=== PATIENT | female | born 1990 | race Caucasian/White ===

== ENCOUNTER 2017-01-07 20:59 | Emergency (ER) | payer BC ==
[~2017-01-07] VITALS: Ht 160 cm; Wt 55.2 kg
[2017-01-07 21:14] VITALS: TEMP 37; Ht 160 cm; Wt 55.2 kg
[2017-01-07] MEDS ORDERED: BCPILLS PO (21:26)
[2017-01-07] MEDS ORDERED: FAMOTIDINE 20 MG TAB PO ONE (21:30)
[2017-01-07] MEDS ORDERED: PRED20TA PO (22:20)
[2017-01-07 22:28] VITALS: BP 97/65; PULSE 69; O2SAT 99
--- NOTE | 2017-01-07 22:44 | EMERGENCY ROOM VISIT NOTE ---
History Report prepared by Eddie: Wes Garzon Under the Supervision of: Dr. Paul Reed M.D. First contact with patient: 21:18 Chief Complaint: ALLERGIC REACTION Stated Complaint: ALLERGIC REACTION History of Present Illness The patient is a 26 year old female who presents to the Emergency Room with complaints of a constant allergic reaction that started at 1930 today. The patient states that she had Fenugreek leaves and lobster two days ago. She states that she started to experience vomiting the next day. She attributed this to the lobster. The patient states that her symptoms resolved until the she ate the leaves again today at 1930. She reports that following the meal, she began experiencing sneezing, rhinorrhea, coughing, and shortness of breath. The patient states that she feels as if her throat is closing up. She reports that she took two tablets of Benadryl 90 minutes ago, but denies any relief of pain. The patient admits to a history of eczema. She denies tongue swelling, itching, hypertension, diabetes, hyperlipidemia, abdominal pain, diarrhea, and fever. Source of History: patient Onset: 1929 Position: other (global) Timing: constant Modifying Factors (Relieving): other (Benadryl) Associated Symptoms: + SOB, No fevers, No abdominal pain, No diarrhea Review of Systems See HPI for pertinent positives & negatives. A total of 10 systems reviewed and were otherwise negative. Past Medical & Surgical Medical Problems: (1) Eczema Family History Patient reports no known family medical history. Social History Smoking Status: Never Smoker Housing Status: lives with significant other Occupation Status: employed Current/Historical Medications Scheduled Control Pills ( Control Pills), 1 TAB PO DAILY Prednisone (Prednisone), 3 TAB PO DAILY Allergies Coded Allergies: No Known Allergies (Unverified , 01/07/17) Physical Exam Vital Signs Date Time Temp Pulse Resp B/P (MAP) Pulse Ox O2 Delivery O2 Flow Rate FiO2 01/07/17 22:28 69 18 97/65 99 01/07/17 21:25 99 Room Air 01/07/17 21:14 37.0 68 20 113/70 98 Room Air Physical Exam Constitutional: Vital signs reviewed. Eyes: Pupils are equal round reactive to light. Conjunctiva are noninjected. ENT: Pharynx is clear without erythema or exudate. Mucous membranes are moist. Neck supple without meningeal signs. No tongue or uvula swelling. Respiratory: Clear to auscultation bilaterally. Breath sounds are equal bilaterally. No wheezing or stridor. Cardiovascular: Regular rate and rhythm. No rubs or gallops. GI: Soft, nondistended and nontender. Bowel sounds are present. Musculoskeletal: No peripheral edema. No lower extremity tenderness. Integumentary: No cyanosis. No hives. Neurological: The patient is awake and alert. No focal deficits. Psychiatric: Normal affect. Medical Decision & Procedures Medications Administered Medications (Trade) Dose Ordered Sig/Kaelyn Route Start Time Stop Time Status Last Admin Dose Admin Prednisone (PredniSONE TAB) 60 mg NOW STAT PO 01/07/17 21:25 01/07/17 21:27 DC 01/07/17 21:52 60 MG Famotidine (Pepcid Tab) 20 mg NOW ONCE PO 01/07/17 21:30 01/07/17 21:31 DC 01/07/17 21:53 20 MG ED Course 2118: The patient was evaluated in room B05. A complete history and physical exam was performed. 2124: Ordered Prednisone 60 mg PO. 2129: Ordered Pepcid Tab 20 mg PO. 2218: I reevaluated the patient and she is doing well. I discussed the treatment plan with the patient and she agrees. The patient is ready for discharge. Medical Decision This is a 26-year-old female who presents with what appears to be allergic reaction to herbs. I did perform a limited focused review of portions of the patient's old chart on the electronic medical record. The patient has had no recent pertinent visits to this hospital. I did evaluate the patient as noted above. The patient states that she believes she has an allergic reaction to Fenugreek leaves. She took some Benadryl prior to arrival and feels somewhat better. She states she has some slight difficulty breathing but is in no respiratory distress. She has no wheezing or stridor on examination. No angioedema. I did treat her with prednisone and Pepcid. We did observe her here and she stated that she felt better. She did feel well enough for discharge. She was discharged with a prescription for prednisone and will continue antihistamines. She was given return instructions as outlined below. Medication Reconcilliation Current Medication List: was personally reviewed by me Blood Pressure Screening Patient's blood pressure: Normal blood pressure Impression Primary Impression: Acute allergic reaction Scribe Attestation The scribe's documentation has been prepared under my direct and personally reviewed by me in its entirety. I confirm that the note above accurately reflects all work, treatment, procedures, and medical decision making performed by me. Departure Information Dispostion Home / Self-Care Prescriptions Prednisone (Prednisone) 20 Mg Tab 3 TAB PO DAILY, #12 TAB FOR 4 DAYS Prov: Paul Reed M.D. 01/07/17 Referrals No Doctor, Assigned (PCP) Forms HOME CARE DOCUMENTATION FORM, IMPORTANT VISIT INFORMATION Patient Instructions ED Allergic Reaction General Other, My [facility] Additional Instructions You have been examined and treated today on an emergency basis only. This is not a substitute for, or an effort to provide, complete comprehensive medical care. It is impossible to recognize and treat all injuries or illnesses in a single emergency department visit. It is therefore important that you follow up closely with your physician. Call as soon as possible for an appointment. Return for worsening symptoms or if you develop fever, vomiting, swelling to your tongue, lips or throat, or any other concerning symptoms. Problem Qualifiers Primary Impression: Acute allergic reaction Encounter type: initial encounter Qualified Codes: T78.40XA - Allergy, unspecified, initial encounter
--- NOTE | 2017-01-08 14:40 | Pharmacy Progress Note ---
ED Pharmacist Progress Note Date of Service: Jan 08, 2017. Received call from patient indicating that her heart was "racing" and wanted to know if prednisone could be causing that. Patient also reported taking more Benadryl today. Counseled that prednisone may cause that symptom, but Benadryl is unlikely to. However, patient denied feeling this way after the dose of prednisone received in the ED. I encouraged her to obtain her heart rate in beats per minute. Patient reported >90 beats per minute. Also reported that she felt "shaky". Denied any additional symptoms. Spoke with Dr. Reed who noted that additional evaluation/care, if needed, should be done in person and not over the phone. Counseled that patient should see her PCP or return to the ED for evaluation. Counseled that ED would be best for emergent care, especially if symptoms worsen. Patient acknowledged understanding.
--- NOTE | 2017-01-08 15:20 | EMERGENCY ROOM VISIT NOTE ---
ED Visit Note First contact with patient: 15:00 After speaking the pharmacist I called the patient back. She related that she had some palpitations today. Currently she is asymptomatic but I did advise her to come in for evaluation today or to see her physician today.
[2017-01-22] MEDS ORDERED: AMOX500C3 PO (00:34)
[2017-01-22] MEDS ORDERED: CLAR500T3 PO (00:34)
== END 2017-01-07 22:32 | disposition home or self-care (01) ==
LOC: C.EDB 21:01
DX: T78.40XA Allergy, unspecified, initial encounter (principal); X58.XXXA Exposure to other specified factors, initial encounter; L30.9 Dermatitis, unspecified; Z79.3 Long term (current) use of hormonal contraceptives

== ENCOUNTER 2017-01-10 01:49 | Emergency (ER) | payer BC ==
[~2017-01-10] VITALS: Ht 157.5 cm; Wt 52.9 kg
[~2017-01-10 01:49] MED LIST: BCPILLS PO; PRED20TA PO
[2017-01-10 01:51] VITALS: TEMP 37; Ht 157.5 cm; Wt 52.9 kg
[2017-01-10 02:53] LABS: PREG INTERNAL NEGATIVE QC NEG CLEAR BACKGROUND; PREG INTERNAL POSITIVE QC POS CONTROL LINE
[2017-01-10 03:44] LABS: ALB/GLOB RATIO 1.2 (0.9-2); CALCIUM 8.8 mg/dl (8.5-10.1); POTASSIUM 3.6 mmol/L (3.5-5.1); THYROID STIMULATING HORMONE 2.7 uIu/ml (0.300-4.500)
[2017-01-10 03:45] LABS: BUN/CREATININE RATIO 14.7 (10-20); CREATININE 0.71 mg/dl (0.60-1.20)
[2017-01-10 03:47] LABS: MANUAL MICROSCOPIC REQUIRED? NO; REVIEW REQ? NO; URINE APPEARANCE CLEAR (CLEAR); URINE BILIRUBIN NEG (NEG); URINE COLOR YELLOW; URINE EPITHELIAL CELL AUTO >30 /lpf (0-5); URINE NITRITE NEG (NEG); URINE PH 7.5 (4.5-7.5); URINE SPECIFIC GRAVITY 1.007 (1.000-1.030); UROBILINOGEN NEG (NEG); ZZUR CULT IF INDIC CLEAN CATCH NO
[2017-01-10 03:50] LABS: BASO % 0.4 %; BASO ABS # 0.02 K/uL (0-0.2); COMPLETE YES; EOS % 0.2 %; HEMATOCRIT 35.9 % (37-47); LYMPH ABS # 1.87 K/uL (1.2-3.4); MEAN CORPUSCULAR HEMOGLOBIN 28.9 pg (25-34); MEAN CORPUSCULAR HGB CONC 32.9 g/dl (32-36); MEAN PLATELET VOLUME 10.4 fL (7.4-10.4); MONO % 7.7 %; NEUT % 54.7 %; PLATELET COUNT 289 K/uL (130-400); RED BLOOD COUNT 4.08 M/uL (4.2-5.4); WHITE BLOOD COUNT 5.05 K/uL (4.8-10.8)
[2017-01-10 04:21] VITALS: BP 98/57; PULSE 64; O2SAT 98
--- NOTE | 2017-01-10 06:28 | EMERGENCY ROOM VISIT NOTE ---
History First contact with patient: 02:02 Chief Complaint: WEAKNESS Stated Complaint: MUSCLE WEAKNESS, NAUSEA, OVERHYDRATION Nursing Triage Summary: Pt complains of muscle weakness and increased urination. Pt feels she is overhydrated. Pt reports she was here Saturday with an allergic reaction and placed on prednisone. History of Present Illness The patient is a 26 year old female who presents to the Emergency Room with complaints of muscle weakness and increased urinary frequency for the past 2 days. The patient was seen in this department a few days ago with an allergic reaction. She was started on prednisone, and states that after taking this medication she began with her symptoms, however the allergic reaction symptoms have stopped. She has been drinking 10 cups of water daily for the past 2 days , and subsequently is urinating much more frequently than normal. She has not had fever or chills. No chest pain, chest tightness, shortness of breath, or abdominal pain. No flank pain. The patient did stop the prednisone today. She denies chance of as she is on control. She does not have history of thyroid disease. She rates her discomfort a 4/10. Review of Systems More than 10 systems were reviewed and otherwise negative with the exception of history of present illness. Past Medical/Surgical History Medical Problems: (1) Eczema Family History Patient reports no known family medical history. Social History Smoking Status: Never Smoker Housing Status: lives with significant other Occupation Status: employed Current/Historical Medications Scheduled Control Pills ( Control Pills), 1 TAB PO DAILY Prednisone (Prednisone), 3 TAB PO DAILY Allergies Coded Allergies: No Known Allergies (Unverified , 01/07/17) Physical Exam Vital Signs Date Time Temp Pulse Resp B/P (MAP) Pulse Ox O2 Delivery O2 Flow Rate FiO2 01/10/17 04:21 64 18 98/57 98 01/10/17 01:51 37.0 86 16 109/76 97 Room Air Physical Exam VITALS: Vitals are noted on the nurse's note and reviewed by myself. Vital signs stable. GENERAL: Well-developed, well-nourished, white female, who is in no acute distress and resting comfortably. Patient is cooperative with the examination. MOUTH: Mucous membranes moist. Tonsils are not enlarged. Pharynx without erythema, blood, or exudate. Uvula midline. Airway patent. NECK: Supple without nuchal rigidity. No lymphadenopathy. No thyromegaly. Cervical spine is nontender. HEART: Regular rate and rhythm without murmurs gallops or rubs. LUNGS: Clear to auscultation bilaterally without wheezes, rales or rhonchi. No retractions or accessory muscle use. ABDOMEN: Positive normal bowel sounds x 4. Soft, nontender, without masses or organomegaly. No guarding or rebound tenderness. Medical Decision & Procedures Laboratory Results 01/10/17 02:20 Red Blood Count 4.08, Mean Corpuscular Volume 88.0, Mean Corpuscular Hemoglobin 28.9, Mean Corpuscular Hemoglobin Concent 32.9, Mean Platelet Volume 10.4, Neutrophils (%) (Auto) 54.7, Lymphocytes (%) (Auto) 37.0, Monocytes (%) (Auto) 7.7, Eosinophils (%) (Auto) 0.2, Basophils (%) (Auto) 0.4, Neutrophils # (Auto) 2.76, Lymphocytes # (Auto) 1.87, Monocytes # (Auto) 0.39, Eosinophils # (Auto) 0.01, Basophils # (Auto) 0.02 01/10/17 02:20 Test 01/10/17 02:20 White Blood Count 5.05 K/uL (4.8-10.8) Red Blood Count 4.08 M/uL (4.2-5.4) Hemoglobin 11.8 g/dL (12.0-16.0) Hematocrit 35.9 % (37-47) Mean Corpuscular Volume 88.0 fL (80-100) Mean Corpuscular Hemoglobin 28.9 pg (25-34) Mean Corpuscular Hemoglobin Concent 32.9 g/dl (32-36) Platelet Count 289 K/uL (130-400) Mean Platelet Volume 10.4 fL (7.4-10.4) Neutrophils (%) (Auto) 54.7 % Lymphocytes (%) (Auto) 37.0 % Monocytes (%) (Auto) 7.7 % Eosinophils (%) (Auto) 0.2 % Basophils (%) (Auto) 0.4 % Neutrophils # (Auto) 2.76 K/uL (1.4-6.5) Lymphocytes # (Auto) 1.87 K/uL (1.2-3.4) Monocytes # (Auto) 0.39 K/uL (0.11-0.59) Eosinophils # (Auto) 0.01 K/uL (0-0.5) Basophils # (Auto) 0.02 K/uL (0-0.2) RDW Standard Deviation 39.7 fL (36.4-46.3) RDW Coefficient of Variation 12.4 % (11.5-14.5) Immature Granulocyte % (Auto) 0.0 % Immature Granulocyte # (Auto) 0.00 K/uL (0.00-0.02) Urine Color YELLOW Urine Appearance CLEAR (CLEAR) Urine pH 7.5 (4.5-7.5) Urine Specific [place] 1.007 (1.000-1.030) Urine Protein NEG (NEG) Urine Glucose (UA) NEG (NEG) Urine Ketones NEG (NEG) Urine Occult Blood NEG (NEG) Urine Nitrite NEG (NEG) Urine Bilirubin NEG (NEG) Urine Urobilinogen NEG (NEG) Urine Leukocyte Esterase SMALL (NEG) Urine WBC (Auto) 1-5 /hpf (0-5) Urine RBC (Auto) 0-4 /hpf (0-4) Urine Hyaline Casts (Auto) 0 /lpf (0-5) Urine Epithelial Cells (Auto) >30 /lpf (0-5) Urine Bacteria (Auto) NEG (NEG) Urine Test NEG (NEG) Anion Gap 7.0 mmol/L (3-11) Est Creatinine Clear Calc Drug Dose 95.8 ml/min Estimated GFR () 137.2 Estimated GFR (Non- 118.4 BUN/Creatinine Ratio 14.7 (10-20) Osmolality 290 mOsm/kg (280-300) Calcium Level 8.8 mg/dl (8.5-10.1) Total Bilirubin 0.7 mg/dl (0.2-1) Aspartate Amino Transf (AST/SGOT) 18 U/L (15-37) Alanine Aminotransferase (ALT/SGPT) 34 U/L (12-78) Alkaline Phosphatase 46 U/L (45-117) Total Creatine Kinase 37 U/L (26-192) Total Protein 7.2 gm/dl (6.4-8.2) Albumin 3.9 gm/dl (3.4-5.0) Globulin 3.3 gm/dl (2.5-4.0) Albumin/Globulin Ratio 1.2 (0.9-2) Thyroid Stimulating Hormone (TSH) 2.700 uIu/ml (0.300-4.500) ED Course Physical exam and history were performed. Nursing notes, EMR, and Medication List were personally reviewed. Patient appears to have reports of urinary frequency and vague weakness. On examination the patient appears well and certainly nontoxic. IV access was established and labs were obtained. The patient's blood work is as above and was reviewed. She does not have a significantly elevated white blood cell count, anemia, bandemia, or gross electrolyte imbalance. Her urine is without signs of infection. She does not appear to be diabetic. Her serum osmolality is normal. The patient vital signs were unchanged throughout her stay, she continued to remain comfortable. Overall the patient appears stable for discharge home. I suspect that her symptoms are somewhat related to taking prednisone, and not necessarily a significant underlying process. I will ask the patient to discontinue the prednisone and to follow with her primary care physician. She was agreeable to this plan and believe this is reasonable. She was otherwise invited back to the ER with any new, worsening, or concerning symptoms. The chart was completed utilizing [employer] Speech Voice Recognition Software. Grammatical errors, random word insertions, pronoun errors, and incomplete sentences are an occasional consequence of this system due to software limitations, ambient noise, and hardware issues. Any formal questions or concerns about the content, text, or information contained within the body of this dictation should be directly addressed to the provider for clarification. . Medical Decision Differential diagnosis: Etiologies such as metabolic, infection, hypo/hyperglycemia, electrolyte abnormalities, cardiac sources, intracerebral event, toxicologic, neurologic, as well as others were entertained. Impression Primary Impression: Muscle weakness Additional Impressions: Increased urinary frequency Medication reaction Departure Information Dispostion Home / Self-Care Condition GOOD Forms HOME CARE DOCUMENTATION FORM, IMPORTANT VISIT INFORMATION Patient Instructions My [facility] Additional Instructions You were seen and evaluated today on an emergency basis only. This is not a substitute for, or an effort to provide, complete comprehensive medical care. It is not possible to recognize and treat all injuries or illnesses in a single emergency department visit. For this reason it is recommended that you followup with your primary care physician next week for ongoing care and evaluation. Discontinue prednisone. You are welcome to return to the emergency department anytime with new, worsening, or concerning symptoms. Problem Qualifiers
== END 2017-01-10 04:30 | disposition home or self-care (01) ==
LOC: C.EDB 01:51 → C.EDA 04:30
DX: T88.7XXA Unspecified adverse effect of drug or medicament, initial encounter (principal); R53.1 Weakness; R11.0 Nausea; X58.XXXA Exposure to other specified factors, initial encounter; R35.0 Frequency of micturition; E87.70 Fluid overload, unspecified

== ENCOUNTER → 2017-01-19 | Outpatient (CLI) | payer BC | END | disposition home or self-care (01) | LOC: C.LAB 14:52 | PROVIDERS: ATTEND Nurse Practitioner Family | DX: R07.89 Other chest pain (principal) ==

== ENCOUNTER 2017-01-27 23:32 | Emergency (ER) | payer BC ==
[~2017-01-27] VITALS: Ht 158.8 cm; Wt 51.1 kg
[~2017-01-27 23:32] MED LIST changes: +AMOX500C3 PO; +CLAR500T3 PO
[2017-01-27 23:45] VITALS: TEMP 36.8; Ht 158.8 cm; Wt 51.1 kg
[2017-01-28] MEDS ORDERED: OMEP40CA41 PO (00:32)
[2017-01-28] MEDS ORDERED: BUSP5TAB59 PO (00:33)
[2017-01-28] MEDS ORDERED: SODIUM CHLORIDE 0.9% 1000ML 1,000 ML IV ONE (00:55)
[2017-01-28] MEDS ORDERED: SODIUM CHLORIDE 0.9% 1000ML 1,000 ML IV STA (00:55)
[2017-01-28 01:25] LABS: BASO % 0.4 %; BASO ABS # 0.02 K/uL (0-0.2); COMPLETE YES; EOS % 1.3 %; HEMATOCRIT 34.8 % (37-47); IG% 0.2 %; LYMPH % 29.3 %; LYMPH ABS # 1.37 K/uL (1.2-3.4); MEAN CELL VOLUME 85.3 fL (80-100); MEAN CORPUSCULAR HEMOGLOBIN 30.1 pg (25-34); MEAN CORPUSCULAR HGB CONC 35.3 g/dl (32-36); MEAN PLATELET VOLUME 10.6 fL (7.4-10.4); MONO % 6.4 %; NEUT % 62.4 %; PLATELET COUNT 279 K/uL (130-400); RED BLOOD COUNT 4.08 M/uL (4.2-5.4); WHITE BLOOD COUNT 4.67 K/uL (4.8-10.8)
[2017-01-28 01:46] LABS: POINT OF CARE TROPONIN I < 0.030 ng/ml (0-0.045)
[2017-01-28 01:49] LABS: BUN/CREATININE RATIO 13.1 (10-20); CALCIUM 8.8 mg/dl (8.5-10.1); CREATININE 0.69 mg/dl (0.60-1.20); POTASSIUM 3.4 mmol/L (3.5-5.1); PREG INTERNAL NEGATIVE QC NEG CLEAR BACKGROUND; PREG INTERNAL POSITIVE QC POS CONTROL LINE
[2017-01-28 01:58] VITALS: BP 112/68; PULSE 83; O2SAT 98
[2017-01-28 02:00] LABS: THYROID STIMULATING HORMONE 1.14 uIu/ml (0.300-4.500)
[2017-01-28] MEDS ORDERED: POTASSIUM CHLORIDE 10 MEQ TABCR PO STA (02:03)
--- NOTE | 2017-01-28 02:28 | EMERGENCY ROOM VISIT NOTE ---
History Report prepared by Eddie: Karen Hartley Under the Supervision of: Dr. Jesús Lui M.D. First contact with patient: 00:21 Chief Complaint: RAPID HEART RATE Stated Complaint: FAST HEARTRATE Nursing Triage Summary: pt reports rapid heart beat and anxiety after waking from sleep at 2300. pt reports that she is currently being treated for h pylori. pt also reports mild chest discomfort. pt is on buspar. History of Present Illness The patient is a 26 year old female who presents to the Emergency Room with complaints of an episode of a rapid heart rate starting 1.5 hours ago. The patient states that she has been having trouble sleeping. She states that tonight when she woke up she felt her heart racing. She reports that it was going 90 bpm. The patient complains of her heart still feeling like its racing, vomiting, diarrhea, and feeling panicky. She denies chest pain, shortness of breath, use of caffeine, use of alcohol, use of drugs, use of tobacco, pain when breathing, sore throat, trouble swallowing, chance of , current abdominal pain, suicidal ideations, and homicidal ideations. She notes that she has been drinking enough liquids. The patient states that she has been put on antianxiety medications, but states that they gave her headaches so she stopped taking them. She notes that she only took 3 doses. She reports that last night she had a panic attack. She states that she couldn't sleep and felt like something was wrong. She states that she was crying and hyperventilating. She notes that she has ulcers and was diagnosed with abdominal pain, but denies being in pain now. The patient notes that these heart symptoms started after she took the prednisone on January 06 for an allergic reaction. Source of History: patient Onset: 1.5 hours ago Position: other (global) Quality: other (global) Timing: other (episode) Associated Symptoms: + vomiting, + diarrhea, No sorethroat, No chest pain, No SOB, No abdominal pain Note: The patient complains of feeling panicky. The patient denies use of caffeine, use of alcohol, use of drugs, use of tobacco, pain when breathing, trouble swallowing, chance of , suicidal ideations, and homicidal ideations Review of Systems See HPI for pertinent positives & negatives. A total of 10 systems reviewed and were otherwise negative. Past Medical & Surgical Medical Problems: (1) Eczema Old medical records were reviewed. Nurse's notes were reviewed and I agree with. Family History Patient reports no known family medical history. Social History Smoking Status: Never Smoker Smokeless Tobacco Use: No Alcohol Use: none Drug Use: none Marital Status: in relationship Housing Status: lives with significant other Occupation Status: employed Current/Historical Medications Scheduled Amoxicillin (Amoxil), 2 CAP PO BID Control Pills ( Control Pills), 1 TAB PO DAILY Buspirone Hcl (Buspirone Hcl), 5 MG PO TID Clarithromycin (Biaxin), 1 TAB PO Q12 Omeprazole (Prilosec), 40 MG PO DAILY Allergies Coded Allergies: No Known Allergies (Unverified , 01/28/17) Physical Exam Vital Signs Date Time Temp Pulse Resp B/P (MAP) Pulse Ox O2 Delivery O2 Flow Rate FiO2 01/28/17 01:58 83 18 112/68 98 Room Air 01/28/17 01:38 87 18 105/67 98 Room Air 01/28/17 01:27 88 01/27/17 23:45 36.8 93 20 126/82 96 Room Air Physical Exam General: Non-ill appearing slender young female in no acute distress. No tremors. HEENT: Normal cephalic atraumatic. Pupils are equal round and reactive to light. Extraocular movements are intact. Oropharynx is pink with moist mucous membranes. No swelling of the mouth lips or tongue. Neck: Supple with a midline trachea. No meningeal signs or stiffness, no JVD or bruits. No Stridor. Chest: Clear to auscultation bilaterally. No wheezes or rhonchi. No increased work of breathing. Heart: regular rate and rhythm. Abdomen: Soft nontender, nondistended without rebound guarding or rigidity. Extremities: No cyanosis clubbing or edema. No calf tenderness or assymetry Spine/Back. Non tender to palpation. No CVA tenderness Skin: Good turgor without rashes. Neurologic exam: Cranial nerves two through 12 are intact. Motor and sensation are intact and symmetrical throughout. Medical Decision & Procedures ER Provider Diagnostic Interpretation: CHEST X-RAY: Chest x-ray per my interpretation reveals no pneumothorax, failure , or infiltrate. Laboratory Results 01/28/17 01:10 Red Blood Count 4.08, Mean Corpuscular Volume 85.3, Mean Corpuscular Hemoglobin 30.1, Mean Corpuscular Hemoglobin Concent 35.3, Mean Platelet Volume 10.6, Neutrophils (%) (Auto) 62.4, Lymphocytes (%) (Auto) 29.3, Monocytes (%) (Auto) 6.4, Eosinophils (%) (Auto) 1.3, Basophils (%) (Auto) 0.4, Neutrophils # (Auto) 2.91, Lymphocytes # (Auto) 1.37, Monocytes # (Auto) 0.30, Eosinophils # (Auto) 0.06, Basophils # (Auto) 0.02 01/28/17 01:10 Test 01/28/17 01:10 01/28/17 01:29 White Blood Count 4.67 K/uL (4.8-10.8) Red Blood Count 4.08 M/uL (4.2-5.4) Hemoglobin 12.3 g/dL (12.0-16.0) Hematocrit 34.8 % (37-47) Mean Corpuscular Volume 85.3 fL (80-100) Mean Corpuscular Hemoglobin 30.1 pg (25-34) Mean Corpuscular Hemoglobin Concent 35.3 g/dl (32-36) Platelet Count 279 K/uL (130-400) Mean Platelet Volume 10.6 fL (7.4-10.4) Neutrophils (%) (Auto) 62.4 % Lymphocytes (%) (Auto) 29.3 % Monocytes (%) (Auto) 6.4 % Eosinophils (%) (Auto) 1.3 % Basophils (%) (Auto) 0.4 % Neutrophils # (Auto) 2.91 K/uL (1.4-6.5) Lymphocytes # (Auto) 1.37 K/uL (1.2-3.4) Monocytes # (Auto) 0.30 K/uL (0.11-0.59) Eosinophils # (Auto) 0.06 K/uL (0-0.5) Basophils # (Auto) 0.02 K/uL (0-0.2) RDW Standard Deviation 37.5 fL (36.4-46.3) RDW Coefficient of Variation 12.2 % (11.5-14.5) Immature Granulocyte % (Auto) 0.2 % Immature Granulocyte # (Auto) 0.01 K/uL (0.00-0.02) Anion Gap 8.0 mmol/L (3-11) Est Creatinine Clear Calc Drug Dose 100.5 ml/min Estimated GFR () 140.2 Estimated GFR (Non- 121.0 BUN/Creatinine Ratio 13.1 (10-20) Calcium Level 8.8 mg/dl (8.5-10.1) Total Bilirubin 0.8 mg/dl (0.2-1) Direct Bilirubin 0.2 mg/dl (0-0.2) Aspartate Amino Transf (AST/SGOT) 22 U/L (15-37) Alanine Aminotransferase (ALT/SGPT) 73 U/L (12-78) Alkaline Phosphatase 54 U/L (45-117) Total Protein 7.2 gm/dl (6.4-8.2) Albumin 3.7 gm/dl (3.4-5.0) Lipase 138 U/L (73-393) Thyroid Stimulating Hormone (TSH) 1.140 uIu/ml (0.300-4.500) Human Chorionic Gonadotropin, Qual NEG (NEG) Bedside D-Dimer 384 ng/mlFEU (0-450) Bedside Troponin I < 0.030 ng/ml (0-0.045) Laboratory studies as stated above per my review. Medications Administered Medications (Trade) Dose Ordered Sig/Kaelyn Route Start Time Stop Time Status Last Admin Dose Admin Sodium Chloride 1,000 ml @ 999 mls/hr Q1H1M STAT IV 01/28/17 00:55 01/28/17 01:55 DC 01/28/17 00:55 999 MLS/HR Sodium Chloride 1,000 ml @ 200 mls/hr Q5H ONCE IV 01/28/17 00:55 01/28/17 05:54 01/28/17 00:55 200 MLS/HR Potassium Chloride (Klor-Con M10) 40 meq NOW STAT PO 01/28/17 02:03 01/28/17 02:05 DC 01/28/17 02:12 40 MEQ ECG Indication: palpitations Rate (beats per minute): 82 Rhythm: normal sinus Findings: no acute ischemic change, no ectopy, other (normal intervals) Comparison ECG Date: no prior available Change: Repeat EKG: Normal sinus rhythm at a rate of 87. No ectopy or acute ischemic changes. No change compared to previous. ED Course 0025: Past medical records reviewed. The patient was evaluated in room C9, and a complete history and physical examination were performed. 0055: Ordered NSS 1000 ml @ 200 mls/hr IV, NSS 1000 ml @ 999 mls/hr IV. 0203: Ordered Potassium Chloride 40 meq PO. 0206: Upon reevaluation, the patient is resting comfortably. I discussed the results and treatment plan with her. She verbalized agreement of the treatment plan. The patient was discharged home. Medical Decision Differential diagnoses include arrhythmia, anxiety, acute coronary syndrome, thyroid disease, electrolyte abnormality, metabolic abnormality. This patient comes in as described above she feels her heart beating fast. She woke up this way. She's been how pierced several times recently with different complaints. She doesn't history of anxiety but only took BuSpar for 3 days that she did not like to wait made her feel. She denies any suicidal ideations. She's been checked for thyroid disease before and does not have any known. She has normal vital signs. IV access established was hydrated with IV normal saline. EKG 2 was unremarkable and there is no arrhythmia or acute ischemic changes. There is no prolonged QT interval or anything to suggest preexcitation or Brugada syndrome. Chest x-ray was unremarkable and she has nothing to suggest congestive heart failure, pneumonia, or pneumothorax. She has no acute electrolyte or metabolic abnormalities with exception of potassium being mildly low at 3.4. She was given 40 mg by mouth here. TSH was within normal limits. D-dimer was also within normal limits and a low pretest probability, makes PE highly unlikely. She has no elevation of her cardiac enzymes. She will be discharged home. I recommend she rest and drink plenty of fluids follow up with her regular doctor in 1-2 days for recheck or return ER if : worsening of symptoms, any new problems or concerns. Impression Primary Impression: Palpitations Scribe Attestation The scribe's documentation has been prepared under my direction and personally reviewed by me in its entirety. I confirm that the note above accurately reflects all work, treatment, procedures, and medical decision making performed by me. Departure Information Dispostion Home / Self-Care Referrals Laura García C.R.N.P. (PCP) Forms HOME CARE DOCUMENTATION FORM, IMPORTANT VISIT INFORMATION, WORK / SCHOOL INSTRUCTIONS Patient Instructions My [facility] Additional Instructions Rest Drink plenty of fluids REturn if: worsening of symptoms, chest pain or shortness of breath, fever or chills, any new problems or concerns. Increase your dietary potassium Follow-up with your doctor on Saturday for recheck
--- NOTE | 2017-01-28 07:20 | DIAGNOSTIC IMAGING REPORT ---
SINGLE VIEW CHEST CLINICAL HISTORY: Atypical chest pain. FINDINGS: An AP, portable, upright chest radiograph is obtained. No prior studies are available for comparison at the time of dictation. The examination is degraded by portable technique and patient rotation. The cardiomediastinal silhouette is unremarkable. The lungs and pleural spaces are clear. No pneumothorax is seen. The bony thorax is grossly intact. IMPRESSION: No active disease in the chest. Electronically signed by: Shaun Renteria M.D. 01/28/2017 7:18 AM Dictated Date/Time: 01/28/2017 7:18 AM
== END 2017-01-28 02:27 | disposition home or self-care (01) ==
LOC: C.EDB 23:32 → C.EDC 01-28 02:27
DX: R00.2 Palpitations (principal); R11.10 Vomiting, unspecified; R19.7 Diarrhea, unspecified

== ENCOUNTER 2017-02-03 19:36 | Emergency (ER) | payer BC ==
[~2017-02-03] VITALS: Ht 158.8 cm; Wt 50.7 kg
[~2017-02-03 19:36] MED LIST changes: -BCPILLS PO; +BUSP5TAB59 PO; -CLAR500T3 PO; +CLAR500T34 PO; +OMEP40CA41 PO; -PRED20TA PO
[2017-02-03 19:41] VITALS: TEMP 36.7; Ht 158.8 cm; Wt 50.7 kg
[2017-02-03 19:52] VITALS: O2SAT 98
[2017-02-03] MEDS ORDERED: ONDANSETRON INJ 2 MG/ML 2 ML VIAL IV STA (20:43)
[2017-02-03] MEDS ORDERED: SODIUM CHLORIDE 0.9% 500ML 500 ML IV STA (20:43)
[2017-02-03 21:13] LABS: ISTAT CREATININE 0.8 mg/dl (0.6-1.3); ISTAT HEMOGLOBIN 14.6 g/dl (12.0-16.0); ISTAT IONIZED CALCIUM 1.27 mmol/l (1.12-1.32)
[2017-02-03] MEDS ORDERED: BCPILLS PO (21:26)
[2017-02-03 21:38] VITALS: BP 107/64; PULSE 75; O2SAT 99
--- NOTE | 2017-02-03 21:55 | EMERGENCY ROOM VISIT NOTE ---
History Report prepared by Eddie: Selena Alaniz Under the Supervision of: Dr. Marcelo Paulino D.O. First contact with patient: 20:30 Chief Complaint: RAPID HEART RATE Stated Complaint: FAST HEARTBEAT, MUSCLE WEAKNESS, NAUSEA Nursing Triage Summary: Patient reports that "I'm having rapid heartbeat, I'm light headed and I get nauseous when I try to eat." Patient notes that her heart rate was 85 at home and that is high for her. Patient denies chest pain and SOB, but notes that her lymph nodes in her throat are sore. Pt also stated the rapid heartbeat tends to happen more when she is up walking around. History of Present Illness The patient is a 26 year old female who presents to the Emergency Room with complaints of persistent heart palpitations that started 3 weeks ago. The patient rates her pain a 1/10 in severity. The patient states she has also been experiencing muscle weakness that started yesterday. She reports that the muscles on her wrist have been twitching today. She notes that she has been unable to eat anything since 5 hours ago today. She reports she can drink water but when she tries to eat she feels nauseous. The patient states that she has been having intermittent light headedness. She notes that she has been to the ED before for heart palpitations but has not experienced muscle aches in the past. Source of History: patient Onset: 3 weeks ago Position: other (heart palpitations) Symptom Intensity: 1/10 Quality: other (heart palpitations) Timing: other (persistent) Associated Symptoms: + nausea, + weakness Note: Additional symptoms: muscles on wrist have been twitching. Review of Systems See HPI for pertinent positives & negatives. A total of 10 systems reviewed and were otherwise negative. Past Medical & Surgical Medical Problems: (1) Eczema Family History Patient reports no known family medical history. Social History Smoking Status: Never Smoker Alcohol Use: none Drug Use: none Marital Status: in relationship Housing Status: lives with significant other Occupation Status: employed Current/Historical Medications Scheduled Control Pills ( Control Pills), 1 TAB PO DAILY Buspirone Hcl (Buspirone Hcl), 5 MG PO TID Omeprazole (Prilosec), 40 MG PO DAILY Allergies Coded Allergies: No Known Allergies (Unverified , 01/28/17) Physical Exam Vital Signs Date Time Temp Pulse Resp B/P (MAP) Pulse Ox O2 Delivery O2 Flow Rate FiO2 02/03/17 21:38 75 16 107/64 99 Room Air 02/03/17 20:30 96 02/03/17 19:55 98 Room Air 02/03/17 19:52 98 Room Air 02/03/17 19:41 36.7 95 18 117/83 98 Room Air Physical Exam VITAL SIGNS: were reviewed as above. GENERAL:Non-toxic in appearance. SKIN: Warm dry and pink. HEAD: Normocephalic and atraumatic. OROPHARYNX: Is clear and moist NECK: Supple without lymphadenopathy or meningismus. LUNGS: clear. HEART: Regular rate and rhythm. ABDOMEN: Soft and nontender. EXTREMITIES: Warm and well perfused. NEUROLOGICALLY: Awake alert and oriented without focal deficit. Cranial nerves 2 -12 are intact. There is no pronator drift. Cerebellar testing is within normal limits. There is no nystagmus. There is no facial droop. Speech is clear. Vision is grossly normal. MUSCULOSKELETAL: Good muscle tone. No evidence of trauma. Medical Decision & Procedures Laboratory Results Test 02/03/17 20:52 02/03/17 20:55 02/03/17 21:02 Urine Test NEG (NEG) Magnesium Level 2.3 mg/dl (1.8-2.4) Bedside Hemoglobin 14.6 g/dl (12.0-16.0) Bedside Hematocrit 43 % (37-47) Bedside Sodium 137 mEq/L (135-144) Bedside Potassium 3.9 mEq/L (3.3-5.0) Bedside Chloride 98 mEq/L (101-112) Bedside Total CO2 29 mEq/l (24-31) Anion Gap 15.0 mmol/L (16-25) Bedside Blood Urea Nitrogen 8 mg/dl (7-18) Bedside Creatinine 0.8 mg/dl (0.6-1.3) Bedside Glucose (other) 102 mg/dl (70-99) Bedside Ionized Calcium (Sushma) 1.27 mmol/l (1.12-1.32) Laboratory results as stated above per my review. Medications Administered Medications (Trade) Dose Ordered Sig/Kaelyn Route Start Time Stop Time Status Last Admin Dose Admin Sodium Chloride 500 ml @ 999 mls/hr Q31M STAT IV 02/03/17 20:43 02/03/17 21:13 DC 02/03/17 21:00 999 MLS/HR Ondansetron HCl (Zofran Inj) 4 mg NOW STAT IV 02/03/17 20:43 02/03/17 20:45 DC 02/03/17 21:00 4 MG ECG Indication: tachycardia Rate (beats per minute): 85 Rhythm: normal sinus Findings: no acute ischemic change, no ectopy ED Course 2030: Previous medical records were reviewed. The patient was evaluated in room C2B. A complete history and physical examination was performed. 2042: Zofran Inj 4 mg IV, Sodium Chloride 500 ml @ 999 mls/hr IV. 2158: On reevaluation, the patient is resting comfortably. I discussed the results and findings with the patient. She verbalized agreement of the treatment plan. She will be discharged home. Medical Decision Differential includes acute coronary syndrome, myocardial infarction, CVA, TIA, anemia, infection, pneumonia, UTI, pyelonephritis, poor nutrition, dehydration, electrolyte disturbance,hypoglycemia. This is a 26-year-old female who presents to the ED with a chief complaint of palpitations and generalized weakness. The patient also reports nausea that started around 3 PM tonight. She also reported a little muscle twitching. She has no other complaints. She has been seen for palpitations in the past. Her vital signs are normal. Her physical exam was normal. Laboratory studies did not show any evidence of anemia, electrolyte abnormality or other issue. An EKG shows a normal sinus rhythm. The patient's vital signs are stable. She was told the results of her tests. She is felt to be stable for discharge. I did recommend outpatient follow-up with your PCP this week. Medication Reconcilliation Current Medication List: was personally reviewed by me Blood Pressure Screening Patient's blood pressure: Normal blood pressure Impression Primary Impression: Palpitations Additional Impression: Weakness Scribe Attestation The scribe's documentation has been prepared under my direction and personally reviewed by me in its entirety. I confirm that the note above accurately reflects all work, treatment, procedures, and medical decision making performed by me. Departure Information Dispostion Home / Self-Care Referrals Laura García C.R.NAmyPAmy (PCP) Patient Instructions My [facility] Additional Instructions Your test results today were normal. Follow-up with your doctor for recheck this week. Return for significant worsening or new concerns. Problem Qualifiers
== END 2017-02-03 22:09 | disposition home or self-care (01) ==
LOC: C.EDB 19:38 → C.EDC 22:09
DX: R00.2 Palpitations (principal); R53.1 Weakness

== ENCOUNTER 2017-03-12 00:14 | Emergency (ER) | payer BC ==
[~2017-03-12] VITALS: Ht 158.8 cm; Wt 51.6 kg
[~2017-03-12 00:14] MED LIST changes: -AMOX500C3 PO; +BCPILLS PO; -CLAR500T34 PO
[2017-03-12 00:27] VITALS: TEMP 36.7; Ht 158.8 cm; Wt 51.6 kg
--- NOTE | 2017-03-12 01:14 | EMERGENCY ROOM VISIT NOTE ---
History Report prepared by Eddie: Jose Quintana Under the Supervision of: Dr. Glen Licona M.D. First contact with patient: 00:51 Chief Complaint: PALPITATIONS Stated Complaint: HEART PALPITATION X 2,SWEATING,SHAKING Nursing Triage Summary: pt c/o palpitations intermittently since 11:30am. denies chest pain. states "I've been having anxiety for the past two months. denies SI/HI. see triage note. History of Present Illness The patient is a 26 year old female who presents to the Emergency Room with complaints of intermittent palpitations starting around 1130 this morning. The patient states that her heart beat goes fast and then slow, and she states that this is abnormal for her. She has a history of palpitations, and she has seen her PCP and a counselor for her anxiety. She states that her heart rate has been lower than in the past, though she is still having some issues. The patient states that she would like to speak with case management and psychiatry since she is having this on going anxiety. She states that her boyfriend visited her recently, and he left this morning, and she states that this could have been a trigger for her since she was alone. The patient states that the anxiety started two months ago after taking prednisone for an allergic reaction. She denies any suicidal ideation, homicidal ideation, or abdominal pain. She is currently on her menstrual period. The patient denies any alcohol or drug use. Source of History: patient Onset: 1130 this morning Position: other (global) Quality: other (palpitations) Timing: intermittent Associated Symptoms: No abdominal pain Note: Associated symptoms: Anxiety Review of Systems See HPI for pertinent positives and negatives. A total of ten systems were reviewed and were otherwise negative. Past Medical & Surgical Medical Problems: (1) Eczema Family History Patient reports no known family medical history. Social History Smoking Status: Never Smoker Alcohol Use: none Drug Use: none Marital Status: in relationship Housing Status: lives with significant other Occupation Status: employed Current/Historical Medications Scheduled Control Pills ( Control Pills), 1 TAB PO DAILY Cetirizine (Zyrtec), 10 MG PO DAILY Allergies Coded Allergies: No Known Allergies (Unverified , 03/12/17) Physical Exam Vital Signs Date Time Temp Pulse Resp B/P (MAP) Pulse Ox O2 Delivery O2 Flow Rate FiO2 03/12/17 02:28 85 16 100/58 98 Room Air 03/12/17 00:27 Room Air 03/12/17 00:27 36.7 78 18 105/72 98 Room Air Physical Exam GENERAL: Awake, alert, anxious-appearing, in no distress HENT: Normocephalic, atraumatic. Oropharynx unremarkable. EYES: Normal conjunctiva. Sclera non-icteric. NECK: Supple. No nuchal rigidity. FROM. No JVD. RESPIRATORY: Clear to auscultation. CARDIAC: Regular rate, normal rhythm. Extremities warm and well perfused. Pulses equal. ABDOMEN: Soft, non-distended. No tenderness to palpation. No rebound or guarding. No masses. RECTAL: Deferred. MUSCULOSKELETAL: Chest examination reveals no tenderness. The back is symmetrical on inspection without obvious abnormality. There is no CVA tenderness to palpation. No joint edema. LOWER EXTREMITIES: Calves are equal size bilaterally and non-tender. No edema. No discoloration. NEURO: Normal sensorium. No sensory or motor deficits noted. SKIN: No rash or jaundice noted. Medical Decision & Procedures ECG Indication: palpitations Rate (beats per minute): 79 Rhythm: normal sinus Findings: no acute ischemic change, other (normal axis) ED Course 0051: The patient was evaluated in room A11. A complete history and physical exam was performed. 0236: I reevaluated the patient. Discussed results and discharge instructions: She verbalized understanding and agreement. The patient is ready for discharge. Medical Decision I reviewed the patient's past medical history, medications, and the nursing notes as described above. Differential diagnoses include: anxiety, panic attack, dehydration, electrolyte abnormality, and arrhythmias. The patient is a 26-year-old woman with a past medical history of recent anxiety having comes emergency Department 2 times in January for similar symptoms and had unremarkable workup including negative d-dimer presents to emergency department after having onset of palpitations unable to sleep per history of present illness. EKG unremarkable. Given patient's prior reassuring evaluations or reassuring clinical exam today is most consistent with anxiety disorder. Further questioning the patient does report that she feels that her symptoms today may have been provoked by her boyfriend going back to [place] today or visiting. The patient denies SI/HI. She was offered to meet with psychiatric casework manager and she was agreeable. She was able to discuss her concerns and appears that she has sufficient outpatient resources and has an appointment on with her psychiatrist. Findings and plan for follow-up reviewed with patient. Patient agreeable and d/c'd per discharge instructions. Medication Reconcilliation Current Medication List: was personally reviewed by me Blood Pressure Screening Patient's blood pressure: Normal blood pressure Impression Primary Impression: Anxiety attack Scribe Attestation The scribe's documentation has been prepared under my direction and personally reviewed by me in its entirety. I confirm that the note above accurately reflects all work, treatment, procedures, and medical decision making performed by me. Departure Information Dispostion Home / Self-Care Referrals Lauar García, C.R.N.P. (PCP) Forms HOME CARE DOCUMENTATION FORM, IMPORTANT VISIT INFORMATION, WORK / SCHOOL INSTRUCTIONS Patient Instructions Anxiety Body Response, Anxiety Disorder, My [facility] Additional Instructions Please follow up with your primary care physician in the next 1-3 days and your psychiatrist as scheduled on for re-evaluation. Your symptoms today were most likely due to anxiety. Otherwise, your exam and EKG did not show signs of an emergent condition at this time. Return to the emergency department for worsening symptoms as described in the accompanying instructions.
[2017-03-12 02:28] VITALS: BP 100/58; PULSE 85; O2SAT 98
[2017-03-12] MEDS ORDERED: CETI10TA84 PO (02:38)
== END 2017-03-12 02:50 | disposition home or self-care (01) ==
LOC: C.EDB 00:16 → C.EDA 02:50
DX: F41.9 Anxiety disorder, unspecified (principal); R00.2 Palpitations; L30.9 Dermatitis, unspecified

== ENCOUNTER → 2017-04-25 | Outpatient (CLI) | payer OTHER ==
[~2017-04-25] MED LIST changes: -BUSP5TAB59 PO; +CETI10TA84 PO; -OMEP40CA41 PO
[2017-04-25 09:25] LABS: HEMATOCRIT 37.2 % (37-47); HEMOGLOBIN 12.6 g/dL (12.0-16.0); MEAN CELL VOLUME 88.2 fL (80-100); MEAN CORPUSCULAR HEMOGLOBIN 29.9 pg (25-34); MEAN CORPUSCULAR HGB CONC 33.9 g/dl (32-36); MEAN PLATELET VOLUME 10.7 fL (7.4-10.4); PLATELET COUNT 293 K/uL (130-400); RED CELL DISTRIBUTION WIDTH SD 38.1 fL (36.4-46.3); WHITE BLOOD COUNT 5.13 K/uL (4.8-10.8)
[2017-04-25 09:36] LABS: BLOOD UREA NITROGEN 11 mg/dl (7-18); CALCIUM 9.2 mg/dl (8.5-10.1); CARBON DIOXIDE 29 mmol/L (21-32); CREATININE 0.76 mg/dl (0.60-1.20); GLUCOSE 92 mg/dl (70-99); POTASSIUM 4.1 mmol/L (3.5-5.1); SODIUM 137 mmol/L (136-145)
== END | disposition home or self-care (01) ==
LOC: C.LAB1850 08:18
PROVIDERS: ATTEND Internal Medicine Cardiovascular Disease
DX: R00.2 Palpitations (principal); R07.89 Other chest pain; R06.09 Other forms of dyspnea